=== PATIENT | female | born 1955 | race Caucasian/White ===

== ENCOUNTER 2024-03-27 13:12 | Outpatient (CLI) | payer MEDICARE | END 2024-03-27 13:13 | disposition home or self-care (01) | LOC: CSHRAD 13:12 | PROVIDERS: ATTEND Internal Medicine Rheumatology | DX: M81.0 Age-related osteoporosis without current pathological fracture (principal); M47.814 Spondylosis without myelopathy or radiculopathy, thoracic region; M48.54XD Collapsed vertebra, not elsewhere classified, thoracic region, subsequent encounter for fracture with routine healing | CPT/HCPCS: 72070 ==

== ENCOUNTER 2025-01-17 13:47 | Emergency (ER) | payer MEDICARE | END 2025-01-17 14:45 | disposition home or self-care (01) | LOC: CSHERS 13:47 | DX: I95.9 Hypotension, unspecified (principal); I11.0 Hypertensive heart disease with heart failure; I50.9 Heart failure, unspecified; J44.9 Chronic obstructive pulmonary disease, unspecified; M79.7 Fibromyalgia | CPT/HCPCS: 99284 ==